=== PATIENT | female | born 1975 | race Caucasian/White ===

== ENCOUNTER 2016-09-24 08:32 | Inpatient (IN) | payer OTHER ==
[~2016-09-24] VITALS: Ht 157.5 cm; Wt 78.1 kg
[~2016-09-24 08:32] MED LIST: FER300 PO; LEVAQUIN750 MG PO; MOTRIN800 MG PO; PRE5 PO; REGLAN10 MG PO; TAM75 PO; VITAMIN B12500 MCG PO; VITC PO
[2016-09-24] MEDS ORDERED: METHOTREXATE2.5 M2 PO (08:58)
[2016-09-24] MEDS ORDERED: METFORMIN500 M1 PO (08:58)
[2016-09-24 09:38] LABS: BASOPHIL % 0.2 % (0-2)
[2016-09-24 09:40] LABS: PLATELET COUNT 426 x10^3mcL (130-400); RED CELL DISTRIBUTION WIDTH 18.9 % (11.5-14.5)
[2016-09-24 10:03] LABS: CALCIUM 9.4 mg/dL (8.5-10.1); CARBON DIOXIDE 28.9 mmol/L (21-32); CHLORIDE SERUM 104 mmol/L (98-107); CREATININE SERUM 0.7 mg/dL (0.6-1.0); GFR1 > 60 mL/min; GLUCOSE SERUM 96 mg/dL (74-106); POTASSIUM SERUM 3.9 mmol/L (3.5-5.1); SODIUM SERUM 141 mmol/L (136-145)
[2016-09-24 10:14] LABS: ALBUMIN 3.7 g/dL (3.4-5.0); ALKALINE PHOSPHATASE 97 U/L (46-116); ALT/SGPT 28 U/L (14-59); AMYLASE 59 U/L (25-115); AST/SGOT 11 U/L (15-37); BILIRUBIN TOTAL 0.33 mg/dL (0.20-1.00); HDL CHOLESTEROL 56 mg/dL (40-60); LIPASE 218 IU/L (73-393); T4(THYROXINE) 6.8 ug/dL (4.7-13.3); TOTAL PROTEIN, SERUM 8.2 g/dL (6.4-8.2)
[2016-09-24 10:15] LABS: CHOLESTEROL 204 mg/dL (<200)
[2016-09-24 10:27] LABS: UA SPECIFIC GRAVITY 1.025 (1.005-1.035); microscopic required? YES; urine erythrocyte TRACE (NEGATIVE)
[2016-09-24 10:43] LABS: AMPHETAMINE QUAL UR NONE DETECTED (NEG <=1000)
[2016-09-24 13:07] LABS: CHOLESTEROL/HDL RATIO 3.6; MAGNESIUM 2.2 mg/dL (1.8-2.4)
[2016-09-24 13:13] LABS: T3 TOTAL 1.01 ng/mL
[2016-09-24 13:20] LABS: FREE T4 1.02 ng/dL (0.76-1.46); FREE THYROXINE INDEX 2.3 ug/dL (1.4-4.5); T4(THYROXINE) 7.7 ug/dL (4.7-13.3)
[2016-09-24 15:19] VITALS: BP 118/77
[2016-09-24 21:12] VITALS: BP 97/63
[2016-09-25 03:34] LABS: CALCIUM 8.8 mg/dL (8.5-10.1); CARBON DIOXIDE 28.2 mmol/L (21-32); CHLORIDE SERUM 105 mmol/L (98-107); CREATININE SERUM 0.8 mg/dL (0.6-1.0); GFR1 > 60 mL/min; GLUCOSE SERUM 132 mg/dL (74-106); MAGNESIUM 2.1 mg/dL (1.8-2.4); PHOSPHOROUS 5.7 mg/dL (2.5-4.9); POTASSIUM SERUM 3.9 mmol/L (3.5-5.1); SODIUM SERUM 138 mmol/L (136-145)
[2016-09-25 03:55] LABS: BASOPHIL % 0.5 % (0-2); PLATELET COUNT 340 x10^3mcL (130-400)
[2016-09-25 04:02] LABS: RED CELL DISTRIBUTION WIDTH 18.9 % (11.5-14.5)
[2016-09-25 06:13] VITALS: BP 102/56
[2016-09-25 09:25] VITALS: BP 94/54
[2016-09-25 15:05] VITALS: BP 106/50
[2016-09-25 18:18] VITALS: BP 123/79
[2016-09-25 20:30] VITALS: BP 139/83
[2016-09-25 22:03] VITALS: BP 136/83
[2016-09-25 22:08] VITALS: Ht 157.5 cm; Wt 78.1 kg
[2016-09-26 07:00] VITALS: BP 117/71
[2016-09-26 09:01] VITALS: BP 104/70
[2016-09-26 12:57] VITALS: BP 123/72
[2016-09-26] MEDS ORDERED: MOT800 PO (13:13)
[2016-09-26] MEDS ORDERED: GOOD SENSE OMEP20 MG PO (13:40)
[2016-09-26] MEDS ORDERED: FIORICET1 CAP PO (13:45)
[2016-09-26 13:53] VITALS: BP 123/72
== END 2016-09-26 14:57 | disposition home or self-care (01) | DRG 203 ==
LOC: ED 08:32 → DU 12:21
PROVIDERS: Emergency Medicine; ADMIT Family Medicine
DX: M94.0 Chondrocostal junction syndrome [Tietze] (principal); N17.0 Acute kidney failure with tubular necrosis; G90.9 Disorder of the autonomic nervous system, unspecified; I42.9 Cardiomyopathy, unspecified; D69.6 Thrombocytopenia, unspecified; E11.9 Type 2 diabetes mellitus without complications; G44.209 Tension-type headache, unspecified, not intractable; E78.5 Hyperlipidemia, unspecified; D64.9 Anemia, unspecified; M06.9 Rheumatoid arthritis, unspecified; M99.01 Segmental and somatic dysfunction of cervical region; M99.02 Segmental and somatic dysfunction of thoracic region; K21.9 Gastro-esophageal reflux disease without esophagitis; F43.9 Reaction to severe stress, unspecified
CPT/HCPCS: 80307; 83880; 84439; 85378; 90732; J2270; J2405; J7030; J7512; J8597; Q0092

== ENCOUNTER 2016-11-21 21:55 | Emergency (ER) | payer OTHER ==
[~2016-11-21 21:55] MED LIST changes: +FIORICET1 CAP PO; +GOOD SENSE OMEP20 MG PO; +METFORMIN500 M1 PO; +METHOTREXATE2.5 M2 PO; +MOT800 PO
[2016-11-21 23:11] VITALS: BP 122/68
== END 2016-11-21 23:11 | disposition home or self-care (01) ==
LOC: ED 21:55
DX: S13.4XXA Sprain of ligaments of cervical spine, initial encounter (principal); R42 Dizziness and giddiness; M06.9 Rheumatoid arthritis, unspecified; E11.9 Type 2 diabetes mellitus without complications; Z79.899 Other long term (current) drug therapy; Z88.3 Allergy status to other anti-infective agents; X58.XXXA Exposure to other specified factors, initial encounter; Y93.89 Activity, other specified; Y92.89 Other specified places as the place of occurrence of the external cause; Y99.8 Other external cause status
CPT/HCPCS: J2270; Q0162

== ENCOUNTER 2017-01-19 21:08 | Emergency (ER) | payer OTHER ==
[~2017-01-19] VITALS: Ht 160 cm; Wt 76.2 kg
[2017-01-19 22:19] LABS: BASOPHIL % 0.4 % (0-2); PLATELET COUNT 363 x10^3mcL (130-400)
[2017-01-19 22:21] LABS: RED CELL DISTRIBUTION WIDTH 19.6 % (11.5-14.5)
[2017-01-19 22:29] LABS: CALCIUM 8.9 mg/dL (8.5-10.1); CARBON DIOXIDE 24.2 mmol/L (21-32); CHLORIDE SERUM 105 mmol/L (98-107); CREATININE SERUM 0.9 mg/dL (0.6-1.0); GFR1 > 60 mL/min; GLUCOSE SERUM 142 mg/dL (74-106); POTASSIUM SERUM 3.3 mmol/L (3.5-5.1); SODIUM SERUM 140 mmol/L (136-145)
[2017-01-19 22:33] LABS: ALBUMIN 3.1 g/dL (3.4-5.0); ALKALINE PHOSPHATASE 93 U/L (46-116); ALT/SGPT 34 U/L (14-59); AMYLASE 49 U/L (25-115); AST/SGOT 14 U/L (15-37); BILIRUBIN TOTAL 0.25 mg/dL (0.20-1.00); LIPASE 238 IU/L (73-393); TOTAL PROTEIN, SERUM 7.7 g/dL (6.4-8.2)
[2017-01-19 22:41] LABS: CK-MB 2.7 ng/mL (0-3.6)
[2017-01-20 00:33] VITALS: BP 113/67
== END 2017-01-20 00:34 | disposition home or self-care (01) ==
LOC: ED 21:08
PROVIDERS: Emergency Medicine
DX: R11.10 Vomiting, unspecified (principal); R42 Dizziness and giddiness; M79.1 Myalgia; E11.9 Type 2 diabetes mellitus without complications; Z88.1 Allergy status to other antibiotic agents; Z79.51 Long term (current) use of inhaled steroids; Z79.899 Other long term (current) drug therapy; Z98.890 Other specified postprocedural states
CPT/HCPCS: J1885; J2270; J2405; J7030

== ENCOUNTER 2017-03-31 08:16 | Emergency (ER) | payer OTHER ==
[~2017-03-31] VITALS: Ht 157.5 cm; Wt 75.3 kg
[2017-03-31 09:09] LABS: PLATELET COUNT 424 x10^3mcL (130-400)
[2017-03-31 09:22] LABS: CALCIUM 9.3 mg/dL (8.5-10.1); CHLORIDE SERUM 104 mmol/L (98-107); CREATININE SERUM 0.8 mg/dL (0.6-1.0); GFR1 > 60 mL/min; GLUCOSE SERUM 114 mg/dL (74-106); SODIUM SERUM 140 mmol/L (136-145)
[2017-03-31 09:27] LABS: ALBUMIN 3.5 g/dL (3.4-5.0); ALKALINE PHOSPHATASE 102 U/L (46-116); ALT/SGPT 27 U/L (14-59); AST/SGOT 11 U/L (15-37); BILIRUBIN TOTAL 0.45 mg/dL (0.20-1.00); TOTAL PROTEIN, SERUM 8.1 g/dL (6.4-8.2)
[2017-03-31 09:56] LABS: microscopic required? YES; urine erythrocyte 1+ (NEGATIVE)
[2017-03-31 11:33] VITALS: BP 114/70
== END 2017-03-31 11:33 | disposition home or self-care (01) ==
LOC: ED 08:16
PROVIDERS: Emergency Medicine
DX: H53.8 Other visual disturbances (principal); E11.9 Type 2 diabetes mellitus without complications; I10 Essential (primary) hypertension; M06.9 Rheumatoid arthritis, unspecified; Z90.710 Acquired absence of both cervix and uterus; Z90.89 Acquired absence of other organs
CPT/HCPCS: J7030; J7040

== ENCOUNTER 2017-09-05 12:40 | Emergency (ER) | payer OTHER ==
[~2017-09-05] VITALS: Ht 160 cm; Wt 76.7 kg
[2017-09-05 13:15] VITALS: Ht 160 cm; Wt 76.7 kg
[2017-09-05 14:53] VITALS: BP 139/94
== END 2017-09-05 14:53 | disposition home or self-care (01) ==
LOC: ED 12:40
DX: K62.5 Hemorrhage of anus and rectum (principal); K64.9 Unspecified hemorrhoids; K21.9 Gastro-esophageal reflux disease without esophagitis; M06.9 Rheumatoid arthritis, unspecified; I10 Essential (primary) hypertension; E11.9 Type 2 diabetes mellitus without complications; Z88.1 Allergy status to other antibiotic agents; Z90.49 Acquired absence of other specified parts of digestive tract

== ENCOUNTER 2017-11-13 00:08 | Emergency (ER) | payer OTHER ==
[~2017-11-13] VITALS: Ht 157.5 cm; Wt 78.0 kg
[2017-11-13 00:20] VITALS: Ht 157.5 cm; Wt 78.0 kg
[2017-11-13 01:12] LABS: BASOPHIL % 0.4 % (0-2)
[2017-11-13 01:15] LABS: PLATELET COUNT 406 x10^3mcL (130-400); RED CELL DISTRIBUTION WIDTH 18.1 % (11.5-14.5)
[2017-11-13 01:21] LABS: CALCIUM 8.8 mg/dL (8.5-10.1); CARBON DIOXIDE 26.3 mmol/L (21-32); CHLORIDE SERUM 105 mmol/L (98-107); CREATININE SERUM 0.9 mg/dL (0.6-1.0); GFR1 > 60 mL/min; GLUCOSE SERUM 149 mg/dL (74-106); POTASSIUM SERUM 3.6 mmol/L (3.5-5.1); SODIUM SERUM 140 mmol/L (136-145)
[2017-11-13 01:25] LABS: ALKALINE PHOSPHATASE 79 U/L (46-116); ALT/SGPT 45 U/L (14-59); AST/SGOT 24 U/L (15-37); BILIRUBIN TOTAL 0.23 mg/dL (0.20-1.00); LIPASE 265 IU/L (73-393)
[2017-11-13 01:56] LABS: ALBUMIN 3.3 g/dL (3.4-5.0)
[2017-11-13 06:00] VITALS: BP 105/72
== END 2017-11-13 06:00 | disposition home or self-care (01) ==
LOC: ED 00:08
PROVIDERS: Emergency Medicine
DX: R10.13 Epigastric pain (principal); I10 Essential (primary) hypertension; E11.9 Type 2 diabetes mellitus without complications; Z88.1 Allergy status to other antibiotic agents; Z90.49 Acquired absence of other specified parts of digestive tract
CPT/HCPCS: J2270; J2405; J7030

== ENCOUNTER 2017-12-26 22:31 | Emergency (ER) | payer OTHER ==
[~2017-12-26] VITALS: Ht 160 cm; Wt 78.9 kg
[2017-12-26 22:42] VITALS: Ht 160 cm; Wt 78.9 kg
[2017-12-26 23:56] VITALS: BP 112/67
== END 2017-12-26 23:56 | disposition home or self-care (01) ==
LOC: ED 22:31
DX: J20.9 Acute bronchitis, unspecified (principal); I10 Essential (primary) hypertension; E11.9 Type 2 diabetes mellitus without complications; Z90.49 Acquired absence of other specified parts of digestive tract; Z90.710 Acquired absence of both cervix and uterus; Z88.1 Allergy status to other antibiotic agents
CPT/HCPCS: J1885

== ENCOUNTER 2018-05-19 08:47 | Emergency (ER) | payer OTHER ==
[~2018-05-19] VITALS: Ht 157.5 cm; Wt 78.7 kg
[2018-05-19 08:50] VITALS: Ht 157.5 cm; Wt 78.7 kg
[2018-05-19 09:40] LABS: BASOPHIL % 0.3 % (0-2); PLATELET COUNT 371 x10^3mcL (130-400)
[2018-05-19 09:41] LABS: RED CELL DISTRIBUTION WIDTH 17.2 % (11.5-14.5)
[2018-05-19 09:50] LABS: CALCIUM 8.9 mg/dL (8.5-10.1); CARBON DIOXIDE 26.8 mmol/L (21-32); CHLORIDE SERUM 106 mmol/L (98-107); CREATININE SERUM 0.7 mg/dL (0.6-1.0); GFR1 > 60 mL/min; GLUCOSE SERUM 132 mg/dL (74-106); POTASSIUM SERUM 4.2 mmol/L (3.5-5.1); SODIUM SERUM 141 mmol/L (136-145)
[2018-05-19 10:02] LABS: ALBUMIN 3.3 g/dL (3.4-5.0); ALKALINE PHOSPHATASE 92 U/L (46-116); ALT/SGPT 23 U/L (14-59); AST/SGOT 6 U/L (15-37); BILIRUBIN TOTAL 0.43 mg/dL (0.20-1.00)
[2018-05-19 12:16] LABS: UA SPECIFIC GRAVITY 1.025 (1.005-1.035); microscopic required? YES; urine erythrocyte 1+ (NEGATIVE)
[2018-05-19 13:14] VITALS: BP 98/53
== END 2018-05-19 13:14 | disposition home or self-care (01) ==
LOC: ED 08:47
PROVIDERS: Emergency Medicine
DX: R51 Headache (principal); M06.849 Other specified rheumatoid arthritis, unspecified hand; E11.9 Type 2 diabetes mellitus without complications; I10 Essential (primary) hypertension; Z90.89 Acquired absence of other organs; Z90.49 Acquired absence of other specified parts of digestive tract; Z98.890 Other specified postprocedural states; Z88.1 Allergy status to other antibiotic agents; Z86.73 Personal history of transient ischemic attack (TIA), and cerebral infarction without residual deficits
CPT/HCPCS: J1200; J1885; J2765; J7030; Q0092

== ENCOUNTER 2018-09-24 16:36 | Emergency (ER) | payer OTHER ==
[~2018-09-24] VITALS: Ht 162.6 cm; Wt 78.5 kg
[2018-09-24 16:43] VITALS: Ht 162.6 cm; Wt 78.5 kg
[2018-09-24 18:53] VITALS: BP 130/80
== END 2018-09-24 18:53 | disposition home or self-care (01) ==
LOC: ED 16:36
DX: J45.901 Unspecified asthma with (acute) exacerbation (principal); J11.1 Influenza due to unidentified influenza virus with other respiratory manifestations; I10 Essential (primary) hypertension; Z88.1 Allergy status to other antibiotic agents; Z90.49 Acquired absence of other specified parts of digestive tract
CPT/HCPCS: 87804; J7512; J7613; J7644; Q0092

== ENCOUNTER 2018-10-14 14:00 | Emergency (ER) | payer OTHER ==
[~2018-10-14] VITALS: Ht 160 cm; Wt 78.5 kg
[2018-10-14 14:06] VITALS: Ht 160 cm; Wt 78.5 kg
[2018-10-14 17:52] LABS: CALCIUM 8.9 mg/dL (8.5-10.1); CARBON DIOXIDE 28.1 mmol/L (21-32); CHLORIDE SERUM 105 mmol/L (98-107); CREATININE SERUM 0.8 mg/dL (0.6-1.0); GFR1 > 60 mL/min; GLUCOSE SERUM 95 mg/dL (74-106); LIPASE 255 IU/L (73-393); POTASSIUM SERUM 3.6 mmol/L (3.5-5.1); SODIUM SERUM 141 mmol/L (136-145)
[2018-10-14 18:00] LABS: UA SPECIFIC GRAVITY >=1.030 (1.005-1.035); microscopic required? YES; urine erythrocyte TRACE (NEGATIVE)
[2018-10-14 18:03] LABS: BASOPHIL % 0.3 % (0-2); PLATELET COUNT 400 x10^3mcL (130-400)
[2018-10-14 18:59] VITALS: BP 127/81
== END 2018-10-14 18:59 | disposition home or self-care (01) ==
LOC: ED 14:00
PROVIDERS: Emergency Medicine
DX: M54.9 Dorsalgia, unspecified (principal); M06.9 Rheumatoid arthritis, unspecified; I10 Essential (primary) hypertension; E11.9 Type 2 diabetes mellitus without complications; J45.909 Unspecified asthma, uncomplicated; E66.9 Obesity, unspecified; Z68.30 Body mass index [BMI] 30.0-30.9, adult; Z90.89 Acquired absence of other organs; Z90.710 Acquired absence of both cervix and uterus; Z88.1 Allergy status to other antibiotic agents
CPT/HCPCS: 36415; J1100; J1885

== ENCOUNTER 2019-03-18 07:35 | Day surgery (SDC) | payer OTHER ==
[~2019-03-18] VITALS: Ht 160 cm; Wt 79.8 kg
[2019-03-18 07:49] VITALS: BP 137/82
[2019-03-18 11:08] VITALS: BP 119/77
== END 2019-03-18 11:00 | disposition home or self-care (01) ==
LOC: GI 07:35 → OR 12:30 → GI 12:30
DX: K22.8 Other specified diseases of esophagus (principal); K21.9 Gastro-esophageal reflux disease without esophagitis; Z88.1 Allergy status to other antibiotic agents; Z79.899 Other long term (current) drug therapy; Z86.73 Personal history of transient ischemic attack (TIA), and cerebral infarction without residual deficits; Z90.710 Acquired absence of both cervix and uterus; Z90.49 Acquired absence of other specified parts of digestive tract; Z98.890 Other specified postprocedural states
CPT/HCPCS: 43235; J1200; J1610; J2250; J2310; J3010; J3490

== ENCOUNTER 2020-04-08 16:55 | Emergency (ER) | payer OTHER ==
[~2020-04-08] VITALS: Ht 160 cm; Wt 75.7 kg
[2020-04-08 17:14] VITALS: Ht 160 cm; Wt 75.7 kg
[2020-04-08 19:08] LABS: BASOPHIL % 0.4 % (0-2); PLATELET COUNT 335 x10^3mcL (130-400); RED CELL DISTRIBUTION WIDTH 14.8 % (11.5-14.5)
[2020-04-08 19:15] LABS: CALCIUM 9.1 mg/dL (8.5-10.1); CARBON DIOXIDE 27.8 mmol/L (21-32); CHLORIDE SERUM 106 mmol/L (98-107); CREATININE SERUM 0.8 mg/dL (0.6-1.0); GFR1 > 60 mL/min; GLUCOSE SERUM 94 mg/dL (74-106); POTASSIUM SERUM 3.5 mmol/L (3.5-5.1); SODIUM SERUM 143 mmol/L (136-145)
[2020-04-08 19:20] LABS: ALBUMIN 3.5 g/dL (3.4-5.0); ALKALINE PHOSPHATASE 83 U/L (46-116); ALT/SGPT 36 U/L (14-59); AST/SGOT 17 U/L (15-37); BILIRUBIN TOTAL 0.4 mg/dL (0.20-1.00); LIPASE 157 IU/L (73-393); TOTAL PROTEIN, SERUM 6.9 g/dL (6.4-8.2)
[2020-04-08 19:25] LABS: microscopic required? YES; urine erythrocyte TRACE (NEGATIVE)
[2020-04-08 20:31] VITALS: BP 128/68
== END 2020-04-08 20:31 | disposition home or self-care (01) ==
LOC: ED 16:55
PROVIDERS: Emergency Medicine
DX: K29.00 Acute gastritis without bleeding (principal); J45.909 Unspecified asthma, uncomplicated; I10 Essential (primary) hypertension; E11.9 Type 2 diabetes mellitus without complications; Z90.49 Acquired absence of other specified parts of digestive tract; Z90.89 Acquired absence of other organs; Z88.1 Allergy status to other antibiotic agents
CPT/HCPCS: J2060; J2405; J3010

== ENCOUNTER 2020-04-17 14:56 | Observation (INO) | payer OTHER ==
[~2020-04-17] VITALS: Ht 157.5 cm; Wt 74.9 kg
[2020-04-17 15:02] VITALS: Ht 157.5 cm; Wt 74.9 kg
--- NOTE | 2020-04-17 15:04 | NUR ---
PLACED IN BED 11 FOR EVAL. CODE STROKE INITIATED.
--- NOTE | 2020-04-17 15:15 | NUR ---
PT BIB SELF C/C LT SIDE FACIAL NUMBNESS STS 20 KETTLE COORDINATOR STS WOKE FEELING WEAK AND TIRED PLACED ON MONITOR AWAITING FOR DR ANUSHKA RAZA
--- NOTE | 2020-04-17 15:24 | NUR ---
DR FLORES AT BEDSIDE TO [facility]
--- NOTE | 2020-04-17 15:27 | NUR ---
DR FLORES AT BEDSIDE TO [facility]
--- NOTE | 2020-04-17 15:39 | NUR ---
TAKEN TO RADIOLOGY FOR CT
--- NOTE | 2020-04-17 15:47 | NUR ---
BACK FROM CT
--- NOTE | 2020-04-17 16:18 | NUR ---
ZOFRAN GIVEN ORDERED
[2020-04-17 16:19] LABS: BASOPHIL % 0.5 % (0-2); PLATELET COUNT 360 x10^3mcL (130-400)
[2020-04-17 16:33] LABS: CHLORIDE SERUM 102 mmol/L (98-107); CREATININE SERUM 0.9 mg/dL (0.6-1.0); GFR1 > 60 mL/min; GLUCOSE SERUM 145 mg/dL (74-106); POTASSIUM SERUM 3.4 mmol/L (3.5-5.1); SODIUM SERUM 135 mmol/L (136-145)
[2020-04-17 16:37] LABS: ALBUMIN 3.5 g/dL (3.4-5.0); ALKALINE PHOSPHATASE 92 U/L (46-116); ALT/SGPT 40 U/L (14-59); AST/SGOT 14 U/L (15-37); BILIRUBIN TOTAL 0.3 mg/dL (0.20-1.00); CHOLESTEROL 190 mg/dL (<200); TOTAL PROTEIN, SERUM 7.1 g/dL (6.4-8.2)
--- NOTE | 2020-04-17 16:42 | NUR ---
ASA GIVE ORDERED
--- NOTE | 2020-04-17 17:42 | NUR ---
PT DENIES DISCOMFORT AT THIS TIME
--- NOTE | 2020-04-17 17:51 | NUR ---
PLEASE ENTER FULL NAMES OF PUMP AND STILL OPERATOR/RN Patient data collected by (PUMP AND STILL OPERATOR):Cassie NEVILLE Assessment reviewed and completed by (RN):Gabriela CROSS
--- NOTE | 2020-04-17 17:52 | NUR ---
NEURO TELE CONSULT AT BEDSIDE
[2020-04-17] MEDS ORDERED: MILLIPRED5 M1 PO (18:19)
--- NOTE | 2020-04-17 18:20 | NUR ---
DR FLORES AT BEDSIDE TO GO OVER PLAN OF CARE
--- NOTE | 2020-04-17 19:27 | NUR ---
RECEIVED REPORT FROM KAYLI NEVILLE LVN TO ASSUME CARE OF PATIENT.
[2020-04-17 23:49] VITALS: BP 125/66
--- NOTE | 2020-04-18 00:08 | NUR ---
RECEIVED PATIENT FROM ER VIA [facility], ALERT AND ORIENTED X4, PATIENT ABLE TO SLIDE FROM GUERNEY TO BED. L-SIDED WEAKNESS. REPORT LANDA 03/01. PLACE T10 NSR W/ HR 73 NOTED. IV TO LAC #20G INTACT/PATENT NOTED. ORIENTED TO CALL LIGHT. CARE ENDORSE TO JUANIS MONK.
[2020-04-18 04:57] VITALS: BP 97/59
--- NOTE | 2020-04-18 06:23 | NUR ---
PT IS SLEEPING BUT EASILY AROUSABLE, [employer] 15. NO DISTRESS NOTED IN RA AND NSR ON TELE. ALL VS WDL, DENIES ANY PAIN/DISCOMFORT AT THIS TIME. IV INTACT AND RUNNING NS @80ML/HR. SKIN INTACT. PT IS ABLE TO MOVE ALL EXTREMITIES - LIMITED ROM ON BLE D/T CHRONIC R.A. SAFETY MEASURES IN PLACE AND CALL LIGHT WITHIN REACH. NO ACUTE EVENTS SINCE ARRIVAL AT UNIT. ALL NEEDS WERE MET.
[2020-04-18 06:39] LABS: ALKALINE PHOSPHATASE 86 U/L (46-116); ALT/SGPT 37 U/L (14-59); AST/SGOT 17 U/L (15-37); BILIRUBIN TOTAL 0.29 mg/dL (0.20-1.00); CALCIUM 8.7 mg/dL (8.5-10.1); CARBON DIOXIDE 25.7 mmol/L (21-32); CHLORIDE SERUM 105 mmol/L (98-107); CREATININE SERUM 0.9 mg/dL (0.6-1.0); GFR1 > 60 mL/min; GLUCOSE SERUM 113 mg/dL (74-106); MAGNESIUM 2.1 mg/dL (1.8-2.4); POTASSIUM SERUM 3.7 mmol/L (3.5-5.1); SODIUM SERUM 138 mmol/L (136-145); TOTAL PROTEIN, SERUM 6.6 g/dL (6.4-8.2)
[2020-04-18 07:03] LABS: BASOPHIL % 0.4 % (0-2); PLATELET COUNT 306 x10^3mcL (130-400); RED CELL DISTRIBUTION WIDTH 14.9 % (11.5-14.5)
--- NOTE | 2020-04-18 07:30 | NUR ---
RECEIVED REPORT FROM [facility] SHIFT NURSE. PATIENT REESTING IN BED, AAO TIMES 4. NO ACUTE DITRESS. DENIES PAIN AND CARDIAC DISCOMFORT. C/O SLIGHT HEAD PRESSURE. RESPIRATIONS EVEN AND UNLABORED ON RA. NO SOB. BED IN LOW POSITION, CALL LIGHT IN REACH, SAFETY MEASURES IN PLACE. WILL CONTINUE TO MONITOR.
[2020-04-18 07:56] VITALS: BP 125/77
[2020-04-18 12:35] VITALS: BP 124/70
--- NOTE | 2020-04-18 14:30 | NUR ---
PATIENT RESTING COMFORTABLY IN BED, RESPIRATIONS EVEN AND UL, NO SOB. BED IN LOW POSITION, CALL LIGHT IN REACH.
[2020-04-18 17:19] VITALS: BP 119/70
--- NOTE | 2020-04-18 18:00 | NUR ---
PATIENT RESTING COMFORTABLY IN BED, DENIES PAIN OR DISCOMFORT. NO ACUTE CHANGES THROUGHOUT SHIFT. BED IN LOW POSITION, CALL LIGHT IN REACH, SAFETY MEASURES IN PLACE. WILL ENDORSE CARE TO ONCOMING RN.
[2020-04-18 19:17] VITALS: BP 111/63
--- NOTE | 2020-04-18 19:20 | NUR ---
PT. SITTING UP IN BED. AWARE OF ORDERS FOR DISCHARGE. VITAL SIGNS OBTAINED. BP 111/63 MAP 92, HR 80, RESP. 19, O2 SAT. 96% RA. 98.7 TEMP. DENIES ANY PAIN AT THIS TIME. TELE REMOVED. PT. ON RA. NO RESP. DISTRESS. IV SITE INTACT, WILL REMOVE.
--- NOTE | 2020-04-18 20:07 | NUR ---
PT. DISCHARGED HOME VIA WHEELCHAIR ACCOMPANIED BY NURSE AID TO AWAITING PRIVATE VEHICLE. NO DISTRESS.
[2020-04-18 20:23] VITALS: BP 111/63
== END 2020-04-18 20:01 | disposition home or self-care (01) ==
LOC: ED 14:56 → DU 18:35
PROVIDERS: Specialist; ADMIT Hospitalist; ATTEND Hospitalist
DX: R53.1 Weakness (principal); R20.0 Anesthesia of skin; I10 Essential (primary) hypertension; Z86.73 Personal history of transient ischemic attack (TIA), and cerebral infarction without residual deficits; R42 Dizziness and giddiness
CPT/HCPCS: G0378; G0480; J1885; J2270; J2405; J7030